=== PATIENT | female | born 1950 | race Caucasian/White ===

== ENCOUNTER 2022-12-11 14:02 | Inpatient (IN) | payer MEDICARE, BC ==
[2022-12-11] MEDS ORDERED: Guaifenesin DM 100-10/5 ML UDCUP PO PRN (17:51)
[2022-12-11] MEDS ORDERED: Senokot S 8.6-50 MG TAB PO PRN (17:51)
[2022-12-11] MEDS ORDERED: Acetaminophen 325 MG TAB PO PRN ×2 (17:51→18:00)
[2022-12-11] MEDS ORDERED: Nitroglycerin 0.4 MG TAB (25 Tab Bottle) SL PRN (17:53)
[2022-12-11 17:56] VITALS: BMI 25.4
[2022-12-11] MEDS ORDERED: Ondansetron ODT 4 MG TAB SL PRN (18:00)
[2022-12-11] MEDS ORDERED: Sodium Chloride 0.9% 1,000 ML IV SCH (18:00)
[2022-12-11] MEDS ORDERED: Ondansetron PF 4 MG/2 ML Vial IVP PRN (18:00)
[2022-12-11] MEDS ORDERED: Dextrose 5% in Water 1,000 ML IV PRN (18:36)
[2022-12-11] MEDS ORDERED: Dextrose 50% Abboject 50 ML SYRINGE SLOW IVP PRN (18:36)
[2022-12-11] MEDS ORDERED: HumaLOG 300 UNITS/3 ML VIAL SC PRN (18:36)
[2022-12-11] MEDS: Sodium Chloride 0.9% 1,000 ML IV SCH (18:45)
[2022-12-11 19:18] LABS: Troponin I Less than 0.010 ng/mL (< 0.028)
[2022-12-11 21:37] LABS: Troponin I Less than 0.010 ng/mL (< 0.028)
[2022-12-12 02:33] LABS: Bacteria/HPF None Seen HPF (None Seen); Bilirubin Negative (Negative); Blood, Urine Negative (Negative); Clarity Clear (Clear); Glucose, Urine (Dipstick) Greater than 1000 mg/dL (Negative); Ketone, Urine Negative (Negative); Leukocyte Negative Leu/uL (Negative); Nitrite Negative (Negative); Protein, Urine (Dipstick) Negative (Neg-Trace); RBC/HPF 0-3 HPF (0-3); Specific Gravity, Urine 1.018 (1.002-1.036); Squamous Epithelial None Seen HPF (0-3); Urobilinogen Normal mg/dL (Less than 2); WBC/HPF 0-3 HPF (0-3); pH, Urine 5.5 (5.0-9.0)
[2022-12-12 04:56] LABS: ALT (SGPT) 79 U/L (8-55); AST (SGOT) 146 U/L (5-34); Albumin 3.1 g/dL (3.4-4.8); Alkaline Phosphatase 83 U/L (40-110); Anion Gap 9 mmol/L (10-20); BUN (Urea Nitrogen) 40 mg/dL (9.8-20.1); Bilirubin, Total 0.9 mg/dL (0.2-1.2); Calc. Creatinine Clearance 35 mL/min (70-130); Calcium 7.9 mg/dL (7.8-10.44); Carbon Dioxide 20 mmol/L (23-31); Cardiac Risk 4.9 (Less than 4.5); Chloride 110 mmol/L (98-107); Cholesterol 97 mg/dl (< 200 Desired); Estimated GFR 34; Globulin 2.2 g/dL (2.4-3.5); Glucose 75 mg/dL (83-110); HDL Cholesterol 20 mg/dL (>60 Neg Risk); LDL Cholesterol, Calculated 52 mg/dL; Potassium 3.8 mmol/L (3.5-5.1); Protein, Total 5.3 g/dL (5.8-8.1); Sodium 135 mmol/L (136-145); Triglycerides 124 mg/dL (Less than 150)
[2022-12-12] MEDS: Sodium Chloride 0.9% 1,000 ML IV SCH (08:25)
[2022-12-12] MEDS ORDERED: Glimepiride 4 MG TAB PO SCH (09:00)
[2022-12-12] MEDS ORDERED: Empagliflozin 10 MG TAB PO SCH (09:00)
[2022-12-12] MEDS ORDERED: Losartan 25 MG TAB PO SCH (09:00)
[2022-12-12] MEDS ORDERED: Aspirin 81 mg Enteric Coated Tablet PO SCH (09:00)
[2022-12-12 16:23] VITALS: BP 116/59; TEMP 98.1
== END 2022-12-12 17:25 | disposition home or self-care (01) | DRG 641 ==
LOC: 2SW 17:38 → OBSVTOIN 17:51
PROVIDERS: ADMIT Internal Medicine; ATTEND Internal Medicine
DX: E86.0 Dehydration (principal); N17.9 Acute kidney failure, unspecified; R74.01 Elevation of levels of liver transaminase levels; I25.10 Atherosclerotic heart disease of native coronary artery without angina pectoris; I10 Essential (primary) hypertension; Z66 Do not resuscitate; E11.9 Type 2 diabetes mellitus without complications; D46.9 Myelodysplastic syndrome, unspecified; Z88.0 Allergy status to penicillin; Z90.49 Acquired absence of other specified parts of digestive tract; Z79.82 Long term (current) use of aspirin; Z79.84 Long term (current) use of oral hypoglycemic drugs; Z79.899 Other long term (current) drug therapy; Z82.49 Family history of ischemic heart disease and other diseases of the circulatory system
CPT/HCPCS: 36415; 36416; 74176; 80053; 80061; 81001; 93306; 94760; J1650; J7050